=== PATIENT | female | born 1975 | race Caucasian/White ===

== ENCOUNTER → 2018-07-03 | Outpatient (CLI) | payer BC ==
--- NOTE | 2018-07-03 23:31 | CONS ---
CONSULTATION REASON FOR CONSULTATION: Sleep apnea. 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 She was morbidly obese and she underwent gastric bypass surgery back in 2005. The patient lost approximately 75 pounds. She has currently plateaued at 204 pounds. She is on oral iron replacement for iron deficiency and she has also hypothyroidism, on thyroid hormone replacement. She has chronic rhinitis and she takes Jo. Recently she has been noted to have snoring, and she has been told that she stops breathing. She is feeling more tired and sleepy during the day. She is waking up tired and fatigued. She goes to bed between 10 and 10:30 p.m. and she wakes up at 5:45 a.m. in the morning. Sometimes she gets very tired during the day. She does not fall asleep during her working hours. She does not fall asleep while driving. No restlessness in the lower extremities. She is coming in for sleep apnea investigation, and she is interested in treatment if significant sleep apnea is confirmed. Her [place] score is currently 60. PAST MEDICAL HISTORY: 1. Morbid obesity, post bariatric surgery. 2. Iron deficiency. 3. Chronic allergic rhinitis. 4. Hypothyroidism. PAST SURGICAL HISTORY: Includes: 1. Lap band insertion and removal. 2. Gastric bypass surgery. 3. Abdominopexy. 4. Ankle surgery. DRUG ALLERGIES: NOT KNOWN. OUTPATIENT MEDICATION LIST: Includes: 1. Levothyroxine 50 mcg p.o. daily. 2. Adipex 37.5 mg p.o. daily. 3. Venlafaxine 150 mg p.o. daily. 4. Iron 325 mg p.o. daily. 5. Jo-D one tablet a day. 6. Calcium with vitamin D, vitamin B and multivitamin treatment. SOCIAL HISTORY: The patient is a nonsmoker. No history of alcoholism. No history of IV drugs. FAMILY HISTORY: Negative for sleep apnea. REVIEW OF SYSTEMS: Fourteen-point review of systems was done. No history of insomnia. No history of choking or gasping sensation. No nocturia. 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 She wakes up with a dry mouth. No anxiety or panic attacks. No heartburn. No palpitations. No sweating. No anxiety. No concern about sexual dysfunction. No history of memory problems or difficulties with concentration. PHYSICAL EXAMINATION: BP is 131/89, pulse 80, respirations 16, temperature 98.2, saturation 97% on room air. Height is 5 feet 0 inches, weight 204 and BMI 39.1. Neck size 14-1/2 inches. GENERAL APPEARANCE: Calm, comfortable. Head is atraumatic, normocephalic. NECK: Supple. Mallampati class IV. There is no goiter neck mass. LUNGS: Clear to auscultation. HEART: Heart sounds are regular rate and rhythm. Normal S1, S2. No S3, S4. No murmurs. ABDOMEN: Soft, nontender. No organomegaly. No direct tenderness, rebound tenderness or guarding. EXTREMITIES: No edema. No cyanosis or clubbing. Neurologically she is alert and oriented x3. No focal neurological deficits. Psychiatrically negative for anxiety or depression. Skin is negative for any wounds ulceration. IMPRESSION: 1. Loud snoring. 2. Chronic hypersomnia and fatigue with an [place] score of 16. 3. Grinding of the teeth. The patient where wears a bite splint. 4. History of obesity, post bariatric surgery. The patient has undergone gastric bypass in 2005 and her weight has plateaued down to 204 pounds. 5. Iron deficiency, currently on oral iron supplements. 6. Hypothyroidism. 7. Chronic allergic rhinitis. PLAN: I had a lengthy discussion with the patient. The patient is interested in treatment if she is found to have significant sleep apnea. She is also open to other alternatives, including oral appliance if a milder case of sleep apnea is confirmed. For now, her weight has plateaued down to 204 pounds following her bariatric surgery. She is implementing good sleep hygiene measures. Continue thyroid hormone replacement. Continue iron supplements. Continue Adipex for weight loss. Proceed with a screening polysomnogram, looking for any significant sleep breathing disorder. Further recommendations are to follow based on the findings. MMODL / IJN: [id number] /
== END ==
LOC: SLEEP 15:07
PROVIDERS: ATTEND Internal Medicine Critical Care Medicine
DX: G47.63 Sleep related bruxism (principal); E03.9 Hypothyroidism, unspecified; E61.1 Iron deficiency; J30.9 Allergic rhinitis, unspecified; Z98.84 Bariatric surgery status; Z79.899 Other long term (current) drug therapy
CPT/HCPCS: 99211

== ENCOUNTER 2021-04-02 11:15 | Day surgery (SDC) | payer BC ==
[2021-03-31 15:46] VITALS: BMI 36.1
[~2021-04-02 11:15] MED LIST: LACTATED RINGERS 1,000 ML IV SCH; LIDOCAINE 1% (10MG/ML) FOR IV START INTRADERMA PRN
[2021-04-02 11:50] VITALS: TEMP 98.2
[2021-04-02] MEDS ORDERED: LIDOCAINE 1% INJ 10MG/ML (20 ML MDV) ONE (11:56)
[2021-04-02] MEDS ORDERED: PROPOFOL 10 MG/ML 20 ML VIAL IV ONE (11:56)
--- NOTE | 2021-04-02 12:15 | P.PCN ---
Date of Procedure: 04/02/21 Procedure(s) Performed: BRIEF HISTORY: Patient is a 46-year-old pleasant white female scheduled for an elective colonoscopy as a part of screening for colorectal neoplasia. PROCEDURE PERFORMED: Colonoscopy snare polypectomy. PREOPERATIVE DIAGNOSIS: Screening for colon cancer. IV sedation per Anesthesia. PROCEDURE: After informed consent was obtained, the patient, was brought into the endoscopy unit. IV sedation was administered by Anesthesia under continuous monitoring. Digital rectal examination was normal. Initially the Olympus CF-160 flexible video colonoscope was then inserted in the rectum, gradually advanced into the cecum without any difficulty. Careful examination was performed as the scope was gradually being withdrawn. Ileocecal valve and the appendiceal orifice were visualized and appeared normal. Prep was fair.. Mucosa of the cecum, ascending colon, appeared normal. In the hepatic flexure there was a 5-6 mm polyp that was removed by snare polypectomy. Rest of the transverse colon, descending colon, sigmoid colon, and rectum appeared normal. Retroflexion was performed in the rectum and no lesions were seen. The patient tolerated the procedure well. IMPRESSION: 5 mm hepatic flexure polyp status post polypectomy Rest of the colon appeared normal RECOMMENDATIONS: Findings of this examination were discussed with the patient as well as her family. She was advised to follow with the biopsy results. If the biopsy reveals adenoma she can have a repeat colonoscopy in 5 years.
[2021-04-02 12:20] VITALS: RESP 16
[2021-04-02 12:34] VITALS: BP 141/89; PULSE 96
== END 2021-04-02 13:00 | disposition home or self-care (01) ==
LOC: ORWHC2ENDO 11:15
PROVIDERS: ATTEND Internal Medicine Gastroenterology
DX: Z12.11 Encounter for screening for malignant neoplasm of colon (principal); D12.6 Benign neoplasm of colon, unspecified
CPT/HCPCS: 45385; 81025; 88305; J2001; J2704